=== PATIENT | male | born 1985 | race African-American/Black ===

== ENCOUNTER 2024-02-21 15:26 | Emergency (ER) | payer OTHER, SELFPAY ==
[2024-02-21 15:34] VITALS: BP 150/86
--- NOTE | 2024-02-21 18:09 | ED.SKININJ ---
HPI-Injury
General
Chief Complaint: Bite
Source: patient
Time Seen by Provider: 02/21/24 17:58
Travel History
Have you had any contact with someone who has COVID-19?: No
Do you have any symptoms of coronavirus? Fever > 100 degrees, chills, cough, shortness of breath, sore throat, loss of taste or smell, muscle aches, or headache?: No
History of Present Illness-Injury
Initial Injury comments:
38-year-old male with past medical history of bipolar disorder and asthma presenting the emergency department after he was stung by an unknown insect on his right hand while at work. Patient states he was wearing work gloves at the time and noticed
the insect on his hand which then stung him and then flew away. Patient states since that time he is felt a burning sensation and some swelling to the right hand. Did not take any medications prior to arrival. No respiratory difficulties.
Past History
Past History
ED Past Medical History: Asthma and Psychiatric (Bipolar, anxiety, depression, ADHD)
ED Past Surgical History: Orthopedic (right knee)
Social History
Tobacco: Smoker
Alcohol: Occasional
Drug: Narcotics and IVDA
Personal: Single
Living: with roommate
Employment: Disabled
Review of Systems
Review of Systems
All Other Systems: ROS reviewed and negative except as documented in HPI and ROS
Phy Exam
Physical Exam
Physical Exam:
GENERAL: Alert , in no apparent distress
EYE: conjunctiva clear
Head: Normocephalic atraumatic
NECK: Supple,
ENT: mmm.
LUNGS: no acute respiratory distress
NEUROLOGICAL: Alert and oriented
SKIN: Warm and dry,. Very small area of erythema over the dorsum of the right hand With mild edema.
MUSCULOSKELETAL: well perfused. Full range of motion of the right upper extremity. Neurovascularly intact
PSYCH: Normal and appropriate interaction.
Scores
Heart Failure Risk
Heart Failure Risk Score: Not Applicable
Heart Score for Chest Pain Patients
STEMI patient?: Not applicable
Withdrawal Assessment of Alcohol
Withdrawal Assessment Completed?: Not applicable
Course
Orders/Labs/Results
Orders:
Orders
02/21/24 18:10
Antolin Wrap Right-Treatment ONCE
Vital Signs
Initial and Last Documented VS:
Initial Vital Signs
Temp Pulse Resp BP Pulse Ox
98.1 F 79 18 150/86 95
02/21/24 15:34 02/21/24 15:34 02/21/24 15:34 02/21/24 15:34 02/21/24 15:34
Last Documented Vital Signs
Temp Pulse Resp BP Pulse Ox
98.1 F 79 18 150/86 95
02/21/24 15:34 02/21/24 15:34 02/21/24 15:34 02/21/24 15:34 02/21/24 15:34
MDM/Problems Addressed
MDM/Problems Addressed:
38-year-old male presenting emergency department for evaluation after being stung on the right hand by an unknown insect about 3 hours prior to arrival to the emergency department. Patient with mild inflammatory reaction. No signs of infection.
There is also no sign of allergic reaction. Will treat with anti-inflammatory/Tylenol, compression, ice and elevation. Patient is otherwise stable for discharge home.
*Pulse Oximetry
Patient hypoxic: no
*Critical Care Note
Total Time (30-74mins, 75-104mins- exclusive of procedures): Not Applicable
ED Attending Note
-
Portions of this chart may have been created with voice recognition software.� Occasional wrong word or��sound alike� substitutions may have occurred due to the inherent limitations of voice recognition software.
Discharge Plan
Departure
Patient Disposition: Home (Routine Discharge)
Date of Disposition: 02/21/24
Time of Disposition: 18:09
Patient with high blood pressure during this ER visit?: Yes
Discharge Problem:
Insect sting
Instructions: Insect Bites and Stings (DC)
Prescriptions:
No Action
dextroamphetamine-amphetamine 10 MG tablet
30 mg PO BID
lithium carbonate 150 MG capsule
1 tab PO DAILY
Patient Comments:
unknown dose
lamotrigine 25 MG tablet, chewable dispersible
1 tab PO DAILY
Patient Comments:
unknown dose
Referrals:
NONE,* [Family Provider] -
Interventions
Interventions:
*Risk Screen - Suicide Last Done: 02/21/24 15:34
*General Assessment Last Done: 02/21/24 18:20
*Neglect/Abuse Screening Last Done: 02/21/24 15:34
ED- Fall Risk Assessment Last Done: 02/21/24 18:20
*ED COVID-19 Vaccine History Last Done: 02/21/24 15:34
*Nursing Disposition Last Done: 02/21/24 18:20
ED-Skin Assessment Last Done: 02/21/24 18:02
Discharge Date and Time
Discharge Date/Time: 02/21/24 18:21
Print Language: [id number]
== END 2024-02-21 18:21 | disposition home or self-care (01) ==
LOC: EMR 15:26
PROVIDERS: EMERGENCY PHYSICIAN Emergency Medicine
DX: L53.8 Other specified erythematous conditions (principal); M79.89 Other specified soft tissue disorders; R20.8 Other disturbances of skin sensation; W57.XXXA Bitten or stung by nonvenomous insect and other nonvenomous arthropods, initial encounter; R03.0 Elevated blood-pressure reading, without diagnosis of hypertension; F31.9 Bipolar disorder, unspecified; F41.9 Anxiety disorder, unspecified; F32.A Depression, unspecified; F90.9 Attention-deficit hyperactivity disorder, unspecified type; J45.909 Unspecified asthma, uncomplicated; F17.200 Nicotine dependence, unspecified, uncomplicated; Z88.1 Allergy status to other antibiotic agents
CPT/HCPCS: 99282